=== PATIENT | male | born 1970 | race Caucasian/White ===

== ENCOUNTER 2020-11-30 16:43 | Observation (INO) | payer OTHER ==
[~2020-11-30] VITALS: Ht 182.9 cm; Wt 72.7 kg
[~2020-11-30 16:43] MED LIST: ASPIRIN EC81 MG PO; ATORVASTATIN CA20 MG PO; AUGMENTIN 875-1 EACH PO; BRILINTA 90 MG90 MG PO; LISINOPRIL5 MG PO; LOPRESSOR 25 MG25 MG PO; NICOTINE PATCH1 EAC2 TD; NITROSTAT0.3 MG SL
[2020-12-01] MEDS ORDERED: BYSTOLIC5 MG PO (03:54)
[2020-12-01] MEDS ORDERED: LISINOPRIL10 MG PO (03:55)
[2020-12-01] MEDS ORDERED: NORVASC5 MG PO (10:54)
[2020-12-01] MEDS ORDERED: ATORVASTATIN CA40 MG PO (10:56)
[2020-12-01] MEDS ORDERED: PROTONIX 40 MG40 M1 PO (11:01)
== END 2020-12-01 16:51 | disposition home or self-care (01) ==
LOC: PROG CARE 19:13
PROVIDERS: ADMIT Internal Medicine Infectious Disease
DX: R07.89 Other chest pain (principal); R00.1 Bradycardia, unspecified; I25.10 Atherosclerotic heart disease of native coronary artery without angina pectoris; F17.210 Nicotine dependence, cigarettes, uncomplicated; I10 Essential (primary) hypertension; E78.5 Hyperlipidemia, unspecified; I25.2 Old myocardial infarction; Z95.5 Presence of coronary angioplasty implant and graft; Z91.041 Radiographic dye allergy status; Z91.013 Allergy to seafood; Z79.82 Long term (current) use of aspirin; Z79.2 Long term (current) use of antibiotics; Z79.899 Other long term (current) drug therapy
CPT/HCPCS: 36415; 80076; 82550; 82553; 83735; 84443; 84484; G0378; G0379